=== PATIENT | male | born 1950 | race Caucasian/White ===

== ENCOUNTER 2020-09-23 21:16 | Emergency (ER) | payer BC, MEDICARE ==
[2020-09-23] MEDS ORDERED: Lidocaine 1% with EPINEPHrine 1:100,000 50 ML MDV INFILT ONE (22:16)
--- NOTE | 2020-09-23 22:16 | EDM.PDOC ---
ED HPI GENERAL MEDICAL PROBLEM - General Chief Complaint: Laceration Stated Complaint: HEAD LACERATION Time Seen by Provider: 09/23/20 22:05 Source of Information: Reports: Patient History Limitations: Reports: No Limitations - History of Present Illness INITIAL COMMENTS - FREE TEXT/NARRATIVE: 70-year-old male had a piece of dock fall onto the top of his head this evening sustaining a laceration. He did not lose consciousness, he denies any visual changes or neck pain. Onset: Sudden Duration: Hour(s): (Within the last 2 hours) Location: Reports: Head Associated Symptoms: Reports: No Other Symptoms - Related Data Allergies Allergy/AdvReac Type Severity Reaction Status Date / Time formaldehyde Allergy Itching Verified 09/23/20 22:10 Home Meds: Home Meds Fish Oil/[place]-3 Fatty Acids [Fish Oil 1,000 MG] 1 cap PO BID 09/23/20 [History] Magnesium Oxide/Mag AA Chelate [Magnesium] 1 cap PO BEDTIME 09/23/20 [History] Multivitamin 1 tab PO DAILY 09/23/20 [History] Rosuvastatin [Crestor] 1 tab PO DAILY 09/23/20 [History] Past Medical History HEENT History: Reports: Impaired Vision Cardiovascular History: Reports: High Cholesterol Musculoskeletal History: Reports: Other (See Below) Other Musculoskeletal History: restless leg syndrom - Infectious Disease History Infectious Disease History: Reports: Chicken Pox, Measles Social & Family History - Tobacco Use Tobacco Use Status *Q: Never Tobacco User - Caffeine Use Caffeine Use: Reports: None - Recreational Drug Use Recreational Drug Use: No ED ROS GENERAL - Review of Systems Review Of Systems: See Below Constitutional: Denies: Fever, Chills Respiratory: Reports: No Symptoms Cardiovascular: Reports: No Symptoms GI/Abdominal: Reports: No Symptoms Musculoskeletal: Denies: Neck Pain Neurological: Denies: Dizziness, Headache Psychiatric: Reports: No Symptoms ED EXAM, SKIN/RASH Exam: See Below Exam Limited By: No Limitations General Appearance: Alert, No Apparent Distress Eye Exam: Bilateral Eye: Normal Inspection Head: Other (6 cm longitudinal laceration across the top of the scalp) Neck: Non-Tender Respiratory/Chest: No Respiratory Distress Neurological: Alert, Oriented, No Motor/Sensory Deficits Psychiatric: Normal Affect, Normal Mood Location, Skin: Head (6 cm scalp laceration) Course - Vital Signs Last Recorded V/S: Last Vital Signs Temp 98.3 F 09/23/20 22:06 Pulse 95 09/23/20 22:06 Resp 16 09/23/20 22:06 BP 146/77 H 09/23/20 22:06 Pulse Ox 95 09/23/20 22:06 - Orders/Labs/Meds Meds: Medications Discontinued Medications Generic Name Dose Route Start Last Admin Trade Name Behzad PRN Reason Stop Dose Admin Lidocaine/Epinephrine 50 ml 09/23/20 22:16 Lidocaine 1% With Epinephrine 1:100,000 50 Ml Mdv INFILT 09/23/20 22:17 ONETIME ONE - Re-Assessments/Exams Free Text/Narrative Re-Assessment/Exam: 09/23/20 23:37 The laceration was infiltrated with 1% lidocaine with epinephrine, cleansed thoroughly with saline, and closed with 7 amado. These can be removed in 1 week. Patient will keep the wound clean while healing and recheck sooner if concerns of infection or not healing satisfactorily. Departure - Departure Time of Disposition: 22:52 Disposition: Home, Self-Care 01 Clinical Impression: Laceration of scalp Qualifiers: Encounter type: initial encounter Qualified Code(s): S01.01XA - Laceration without foreign body of scalp, initial encounter - Discharge Information Instructions: Sutures, Amado, or Adhesive Wound Closure, [id number] Referrals: PCP,None [Primary Care Provider] - Forms: ED Department Discharge Care Plan Goals: Keep wound clean while healing, and amado can be removed in 7 days. Recheck sooner if concerns of infection or not healing satisfactorily. Sepsis Event Note (ED) - Evaluation Sepsis Screening Result: No Definite Risk - Focused Exam Vital Signs: Vital Signs Temp Pulse Resp BP Pulse Ox 09/23/20 22:06 98.3 F 95 16 146/77 H 95
== END 2020-09-23 22:53 | disposition home or self-care (01) ==
LOC: JP.ED 21:16
DX: S01.01XA Laceration without foreign body of scalp, initial encounter (principal); E78.00 Pure hypercholesterolemia, unspecified; Z91.048 Other nonmedicinal substance allergy status; Z79.899 Other long term (current) drug therapy; W20.8XXA Other cause of strike by thrown, projected or falling object, initial encounter
CPT/HCPCS: 12002; 99282-25